=== PATIENT | female | born 1940 | race Two or more races ===

== ENCOUNTER 2017-07-12 17:22 | Emergency (ER) | payer MEDICARE, OTHER ==
[~2017-07-12] VITALS: Ht 160 cm; Wt 62.5 kg
[2017-07-12 17:55] LABS: BASOPHILS % (AUTO) 0.5 % (0-1); EOSINOPHILS # (AUTO) 0.2 X10'3 (0-0.9); EOSINOPHILS % (AUTO) 3.2 % (0-6); HEMOGLOBIN 13.4 g/dl (12.0-16.0); LYMPHOCYTES # (AUTO) 2.7 X10'3 (1.1-4.8); LYMPHOCYTES % (AUTO) 36.1 % (21-51); MEAN CORPUSCULAR HEMOGLOBIN 30.3 PG (27.0-31.0); MEAN CORPUSCULAR HGB CONC 34.2 % (33.0-36.5); MEAN CORPUSCULAR VOLUME 88.6 FL (78-98); MEAN PLATELET VOLUME 8.9 FL (7.4-10.4); MONOCYTES # (AUTO) 0.5 X10'3 (0-0.9); NEUTROPHILS % (AUTO) 53.2 % (42-75); PLATELET COUNT 237 X10'3 (140-440); RED BLOOD COUNT 4.41 X10'6 (4.20-5.60); RED CELL DISTRIBUTION WIDTH 13.8 % (11.5-14.5); WHITE BLOOD COUNT 7.6 X10'3 (4.5-11.0)
[2017-07-12 18:07] LABS: INR 0.9 INR; PARTIAL THROMBOPLASTIN TIME 29 SECONDS (22-32); PROTHROMBIN TIME 9.4 SECONDS (9.0-12.0)
[2017-07-12 18:15] LABS: ALANINE AMINOTRANSFERASE 25 U/L (12-78); ALBUMIN 3.1 G/DL (3.4-5.0); ALBUMIN/GLOBULIN RATIO 0.8 (1.1-1.5); ALKALINE PHOSPHATASE 80 IU/L (46-116); ANION GAP 9 (8-16); ASPARTATE AMINO TRANSFERASE 19 U/L (10-37); BILIRUBIN,TOTAL 0.6 MG/DL (0.1-1.0); BLOOD UREA NITROGEN 15 MG/DL (7-18); BUN/CREATININE RATIO 22.7 (6.6-38.0); CALCIUM 8.6 MG/DL (8.5-10.1); CHLORIDE 105 MMOL/L (99-107); CREATININE 0.66 MG/DL (0.40-0.90); GLUCOSE 89 MG/DL (70-104); POTASSIUM 3.8 MMOL/L (3.5-5.1); SODIUM 140 MMOL/L (135-145); TOTAL CARBON DIOXIDE 26.5 MMOL/L (24-32); TOTAL PROTEIN 6.9 G/DL (6.4-8.2); TROPONIN I < 0.04 NG/ML (0.0-0.05); eGFR 87 ML/MIN
[2017-07-12 20:30] VITALS: BP 159/78
== END 2017-07-12 20:33 | disposition home or self-care (01) ==
LOC: ER 17:22
DX: I63.9 Cerebral infarction, unspecified (principal); E78.00 Pure hypercholesterolemia, unspecified; K21.9 Gastro-esophageal reflux disease without esophagitis; Z90.49 Acquired absence of other specified parts of digestive tract; Z98.890 Other specified postprocedural states; Z87.11 Personal history of peptic ulcer disease; Z98.42 Cataract extraction status, left eye; Z98.41 Cataract extraction status, right eye
CPT/HCPCS: 36415; 70450; 71045; 80053; 82948; 84484; 85025; 85610; 85730; 93005; 99285

== ENCOUNTER 2018-11-16 16:53 | Emergency (ER) | payer MEDICARE ==
[~2018-11-16] VITALS: Ht 154.9 cm; Wt 59.1 kg
[2018-11-16 17:18] VITALS: BP 146/71
== END 2018-11-16 22:25 | disposition home or self-care (01) ==
LOC: ER 16:54
DX: S42.291A Other displaced fracture of upper end of right humerus, initial encounter for closed fracture (principal); E78.00 Pure hypercholesterolemia, unspecified; K21.9 Gastro-esophageal reflux disease without esophagitis; Z87.11 Personal history of peptic ulcer disease; Z98.890 Other specified postprocedural states; Z90.49 Acquired absence of other specified parts of digestive tract; W18.39XA Other fall on same level, initial encounter; Y93.89 Activity, other specified; Y92.89 Other specified places as the place of occurrence of the external cause; Y99.8 Other external cause status
CPT/HCPCS: 73030; 99283

== ENCOUNTER 2024-11-29 16:42 | Emergency (ER) | payer MEDICARE, BC ==
[~2024-11-29] VITALS: Ht 152.4 cm; Wt 48.0 kg
--- NOTE | 2024-11-29 17:41 | RADIOLOGY REPORT ---
CHEST RADIOGRAPH Indication: SOB Technique: Single frontal view of the chest was obtained Comparison: None FINDINGS: Lines and Tubes: None Lungs: No focal consolidation. Pleura: No effusion. No pneumothorax. 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 Nonspecific 2.8 cm linear densities overlying the mid mediastinum which may be external to the patient. Recommend clinical correlation. Bones: No acute osseous abnormality. IMPRESSION: No acute cardiopulmonary disease. Herart size is within normal limits with widening of the mediastinum which is most likely from uncoil ing of the aorta. CT may be considered for further evaluation if clinically indicated.
[2024-11-29 18:06] LABS: MEAN PLATELET VOLUME 8.8 FL (7.4-10.4); RED CELL DISTRIBUTION WIDTH 14.2 % (11.5-14.5)
[2024-11-29 18:15] LABS: CREATININE 0.65 MG/DL (0.40-0.90); TOTAL CARBON DIOXIDE 25.8 MMOL/L (24-32); eCRCL 45 ML/MIN; eGFR 86 ML/MIN
--- NOTE | 2024-11-29 19:17 | Physician Documentation ---
History of Present Illness ~ Chief Complaint: Cold, cough & congestion Stated Complaint: "I THINK I HAVE COVID" Time Seen by MD: 19:12 Primary Medical Doctor: [facility] HPI Patient is seen today with complaints of feeling like she has COVID-19. Patient states she has had cough and cold-like symptoms with runny nose and sore throat with body aches and fever and chills for the last four days. Patient states she just needs tested for COVID because he is trying to go to [place] for an appointment. She denies any shortness of breath or abdominal pain and has no other concern or complaint at this time. Medication Reconciliation Allergies: Coded Allergies: No Known Allergies (Unverified , 11/29/24) Past Medical History Past Medical History: Cataracts, High Cholesterol, GERD, Peptic Ulcer Disease Past Surgical History: appendectomy, other Other Past Surgical History: cataracts surgery bilateral Alcohol Use: None Drug Use: none Lives In: Home Review of Systems Constitutional: Denies: chills, fever, weakness Eyes: Denies: pain, blurred vision ENT: Denies: ear pain, nose pain, throat pain, mouth pain Respiratory: Denies: cough, shortness of breath Cardiovascular: Denies: chest pain, palpitations Gastrointestinal: Denies: abdominal pain, nausea, vomiting Genitourinary: Denies: burning, dysuria Female Genitalia: Denies: vaginal discharge, pelvic pain Neurological: Denies: headache, dizziness Musculoskeletal: Denies: pain, swelling Integumentary: Denies: rash, lesions Allergic/Immunologic: Denies: hives, itching Hematologic/Lymphatic: Denies: no symptoms reported Psychiatric: Denies: depression, anxiety Physical Exam Vital Signs: Temperature: 100.2, Source: Oral, Heart Rate: 114, Respiratory Rate: 20, BP: 146/86, Pulse Oximetry: 97, Weight: 48.000 Oxygen Flow Rate: 0 Progress Results/Orders Results/Orders Orders - KATHLEEN VASQUEZ Covid19 Binax Poc Result Entry (11/29/24 18:50) Completed Orders - KATHLEEN VASQUEZ Acetaminophen 325mg Tablet (Tylenol Tabl (11/29/24 17:20) Medications Received in ER Medications (Trade) Dose Ordered Sig/Morgan Route PRN Reason Start Time Stop Time Status Last Admin Dose Admin (Tylenol tablet) 650 mg ONCE ONCE PO 11/29/24 17:20 11/29/24 17:21 DC 11/29/24 19:16 650 MG Vital Signs 11/29/24 11/29/24 11/29/24 17:01 19:19 19:27 Temp 100.2 99.3 Pulse 114 86 Resp 20 18 16 B/P (MAP) 146/86 123/75 (91) Pulse Ox 97 96 O2 Flow Rate 0 0 Laboratory Tests Test 11/29/24 17:52 11/29/24 19:08 White Blood Count 3.9 L Red Blood Count 5.38 Hemoglobin 16.1 H Hematocrit 47.4 H Mean Corpuscular Volume 88.0 Mean Corpuscular Hemoglobin 29.9 Mean Corpuscular Hemoglobin Concent 34.0 Red Cell Distribution Width 14.2 Platelet Count 144 Mean Platelet Volume 8.8 Neutrophils (%) (Auto) 82.2 H Lymphocytes (%) (Auto) 6.9 L Monocytes (%) (Auto) 9.8 Eosinophils (%) (Auto) 0.5 Basophils (%) (Auto) 0.6 Neutrophils # (Auto) 3.2 Lymphocytes # (Auto) 0.3 L Monocytes # (Auto) 0.4 Eosinophils # (Auto) 0.0 Basophils # (Auto) 0.0 CBC Comment Sodium Level 127 L Potassium Level 3.7 Chloride Level 95 L Carbon Dioxide Level 25.8 Anion Gap 6 L Blood Urea Nitrogen 16 Creatinine 0.65 Estimated GFR/1.73 m2 86 BUN/Creatinine Ratio 24.6 H Glucose Level 108 H Lactic Acid Level 1.1 Calcium Level 8.7 Albumin 3.2 L Procalcitonin < 0.05 Chemistry Comments SARS-CoV-2 Antigen (Rapid) Positive *A Medical Decision Making Findings Patient is seen today with complaints of feeling like she has COVID-19. Patient states she has had cough and cold-like symptoms with runny nose and sore throat with body aches and fever and chills for the last four days. Patient states she just needs tested for COVID because he is trying to go to [place] for an appointment. She denies any shortness of breath or abdominal pain and has no other concern or complaint at this time. Patient did have COVID testing done today and did come back positive. Given patient's initiation of symptoms, treatment with the Paxlovid is not advisable at this time. Patient will continue with conservative treatment with increase rest and fluids and treat symptomatically with Mucinex DM and Tylenol and ibuprofen as needed. Patient will follow up with primary care in 3-5 days if no better as needed sooner. Return to ED with any worsening, concerning or changing symptoms. Departure Disposition: HOME / SELF CARE / HOMELESS Impression: Primary Impression: Cough Qualified Codes: R05.1 - Acute cough Condition: Stable Discharge Instructions: Upper Respiratory Infection, Adult Additional Instructions: Patient did have COVID testing done today and did come back positive. Given patient's initiation of symptoms, treatment with the Paxlovid is not advisable at this time. Patient will continue with conservative treatment with increase rest and fluids and treat symptomatically with Mucinex DM and Tylenol and ibuprofen as needed. Patient will follow up with primary care in 3-5 days if no better as needed sooner. Return to ED with any worsening, concerning or changing symptoms. Referrals: NO PRIMARY CARE PROVIDER (PCP) Signature Scribe Signature: No scribe Attestation: No scribe KATHLEEN VASQUEZ PAC Nov 29, 2024 19:17
[2024-11-29 19:19] VITALS: BP 123/75; PULSE 86; TEMP 99.3; O2SAT 96
[2024-11-29 19:27] VITALS: RESP 16
== END 2024-11-29 19:50 | disposition home or self-care (01) ==
LOC: ER 16:42
DX: U07.1 COVID-19 (principal); R05.9 Cough, unspecified; R50.9 Fever, unspecified; E78.00 Pure hypercholesterolemia, unspecified; K21.9 Gastro-esophageal reflux disease without esophagitis; Z87.11 Personal history of peptic ulcer disease; Z90.49 Acquired absence of other specified parts of digestive tract
CPT/HCPCS: 36415; 71045; 80048; 83605; 84145; 85025; 87040; 87811; 99284